=== PATIENT | female | born 1975 | race American Indian/Alaskan Native ===

== ENCOUNTER 2017-03-25 05:57 | Day surgery (SDC) | payer MEDICAID ==
[2017-03-25] MEDS ORDERED: DIPRIVAN 10 MG/ML IV ONE (07:21)
[2017-03-25] MEDS ORDERED: WATER FOR IRRIG STERILE IR ONE (07:31)
--- NOTE | 2017-03-25 07:33 | Anesthesia Day of Surgery ---
Anesthesia Day of Surgery - Day of Surgery Patient Examined: Yes Patient H&P Reviewed: Yes Patient is NPO: Yes
--- NOTE | 2017-03-25 07:34 | Anesthesia Consultation ---
Anesthesia Consult and Med Hx Date of service: 03/25/17 - Airway Anesthetic Teeth Evaluation: Good ROM Head & Neck: Adequate Mental/Hyoid Distance: Adequate Mallampati Class: Class II Intubation Access Assessment: Probably Good - Pulmonary Exam CTA: Yes - Cardiac Exam Cardiac Exam: RRR - Pre-Operative Health Status ASA Pre-Surgery Classification: ASA3 Proposed Anesthetic Plan: MAC - Pulmonary Hx Smoking: Yes (Quit in October) Hx Asthma: No - Cardiovascular System Hx Hypertension: Yes (took meds yesterday AM) - Central Nervous System Hx Psychiatric Problems: Yes (Anxiety, Bipolar) - Endocrine Hx Non-Insulin Dependent Diabetes: No - Hematic Hx Anemia: No Hx Sickle Cell Disease: No - Other Systems Hx Alcohol Use: Yes (occasionally) Hx Substance Use: No Hx Cancer: No Hx Obesity: Yes
--- NOTE | 2017-03-25 07:46 | Discharge Summary ---
Providers - Providers Date of discharge: 03/25/17 Attending physician: NAHUM SCHAFER Primary care physician: BECCA LEONARD Hospitalization Condition: Good Procedures: egd Disposition: DC-01 TO HOME OR SELFCARE Core Measure Documentation - Palliative Care Palliative Care/ Comfort Measures: Not Applicable - Core Measures Any of the following diagnoses?: none Exam - Physical Exam Narrative exam: unchanged from pre-op - Constitutional Vitals: Temp Pulse Resp BP Pulse Ox 97.2 F L 63 16 129/63 92 03/25/17 07:36 03/25/17 07:36 03/25/17 07:36 03/25/17 07:36 03/25/17 07:36 Plan Activity: no restrictions Weight Bearing Status: Full Weight Bearing Diet: regular Follow up with: BECCA LEONARD MD [Primary Care Provider] - 7 Days
--- NOTE | 2017-03-25 07:48 | Operative Report ---
Operative Report Operative Report: OPERATIVE REPORT - EGD DATE 03/24/17 SURGERY: Upper endoscopy. SURGEON: Lane Bautista M.D. PRE OP DX: dyspepsia POST OP DX: hiatal hernia TYPE OF ANESTHESIA: MAC. ESTIMATED BLOOD LOSS: None. COMPLICATIONS: None. SPECIMENS REMOVED: None. FINDINGS: 1. large hiatal hernia. 2. Otherwise, normal esophagus, stomach and first portion of duodenum. INDICATIONS:INDICATION FOR PROCEDURE: Patient is a 41-year-old female with a long history of morbid obesity. She is planned to have a weight loss procedure and is here for preoperative planning EGD. We are looking for any pathology that may explain her symptoms or be a contraindication for upcoming bariatric surgery. PROCEDURE DETAILS: After consent was reviewed, patient was taken back to the operating room where patient was placed in the left lateral decubitus position and a bite block was placed in the mouth. After a time-out was called, MAC anesthesia was initiated. I then passed the endoscope into her oropharynx, into her esophagus, visualized the entire esophagus, which was all within normal limits. I then visualized the stomach and the first portion of the duodenum and there were no abnormalities I could clearly visualize. I then retroflexed the scope in the stomach and visualized the hiatus and I could see a large 3-4cm hiatal hernia. I then desufflated the stomach and removed the endoscope. Patient tolerated procedure well and was transferred to recovery room in good and stable condition.
[2017-03-25] MEDS ORDERED: NACL 0.9% 1000 ML 1,000 ML IV SCH (08:00)
[2017-03-25 08:12] VITALS: BP 107/65
--- NOTE | 2017-03-25 08:21 | Post Anesthesia Evaluation ---
- Post Anesthesia Evaluation Patient Participated: Yes Airway Patent: Yes Stable Respiratory Function: Yes Temp > 96.8F: Yes Pain Manageable: Yes Adequeate Hydration: Yes Anesthesia Complications: No
== END 2017-03-25 05:58 | disposition home or self-care (01) ==
LOC: GIO 05:57
PROVIDERS: ATTEND Surgery
DX: K44.9 Diaphragmatic hernia without obstruction or gangrene (principal); I10 Essential (primary) hypertension; E78.00 Pure hypercholesterolemia, unspecified; K21.9 Gastro-esophageal reflux disease without esophagitis; F31.9 Bipolar disorder, unspecified; F41.9 Anxiety disorder, unspecified; E66.01 Morbid (severe) obesity due to excess calories; Z68.42 Body mass index [BMI] 45.0-49.9, adult; Z90.49 Acquired absence of other specified parts of digestive tract; Z98.890 Other specified postprocedural states; Z79.899 Other long term (current) drug therapy
CPT/HCPCS: 43235; 81025; J2704; J7030

== ENCOUNTER 2017-04-01 07:30 | Inpatient (IN) | payer MEDICAID ==
[~2017-04-01 07:30] MED LIST: MARCAINE-EPI/PF 0.5%-1:200,000 INFILTRATI ONE; XYLOCAINE 1% 20 mL ONE
[2017-04-01] MEDS ORDERED: ANCEF/STERILE WATER 2 GM/20 ML IV NR (10:00)
--- NOTE | 2017-04-01 10:46 | Anesthesia Day of Surgery ---
Anesthesia Day of Surgery - Day of Surgery Patient Examined: Yes Patient H&P Reviewed: Yes Patient is NPO: Yes
--- NOTE | 2017-04-01 10:46 | Anesthesia Consultation ---
Anesthesia Consult and Med Hx Date of service: 04/01/17 - Airway Anesthetic Teeth Evaluation: Good ROM Head & Neck: Adequate Mental/Hyoid Distance: Adequate Mallampati Class: Class II Intubation Access Assessment: Probably Good - Pulmonary Exam CTA: Yes - Cardiac Exam Cardiac Exam: RRR - Pre-Operative Health Status ASA Pre-Surgery Classification: ASA3 Proposed Anesthetic Plan: General - Pulmonary Hx Smoking: Yes (Quit in October) Hx Asthma: No - Cardiovascular System Hx Hypertension: Yes (took meds yesterday AM) - Central Nervous System Hx Psychiatric Problems: Yes (Anxiety, Bipolar) - Endocrine Hx Non-Insulin Dependent Diabetes: No - Hematic Hx Anemia: No Hx Sickle Cell Disease: No - Other Systems Hx Alcohol Use: Yes (occasionally) Hx Substance Use: No Hx Cancer: No Hx Obesity: Yes
[2017-04-01] MEDS ORDERED: TRANSDERM-SCOP TD NR (11:00)
[2017-04-01] MEDS ORDERED: LOVENOX SUB-Q NR (11:00)
[2017-04-01] MEDS ORDERED: VERSED IV PRN (11:00)
[2017-04-01] MEDS ORDERED: FLAGYL 500 MG/100 ML 500 MG/100 ML BAG IV NR (11:00)
[2017-04-01] MEDS ORDERED: NACL 0.9% 1000 ML 1,000 ML IV SCH (11:00)
[2017-04-01] MEDS ORDERED: PEPCID IV SCH (11:02)
[2017-04-01] MEDS ORDERED: MYLICON PO PRN (11:09)
[2017-04-01] MEDS ORDERED: ZOFRAN IV PRN ×2 (11:09→16:20)
[2017-04-01] MEDS ORDERED: MORPHINE IV PRN (11:30)
[2017-04-01] MEDS ORDERED: XANAX PO PRN (11:30)
[2017-04-01] MEDS ORDERED: REGLAN IV PRN (11:30)
[2017-04-01] MEDS ORDERED: XYLOCAINE MPF 2% ONE (11:36)
[2017-04-01] MEDS ORDERED: ZEMURON IV ONE (11:36)
[2017-04-01] MEDS ORDERED: DIPRIVAN 10 MG/ML IV ONE (11:36)
[2017-04-01] MEDS ORDERED: DILAUDID ONE (11:36)
[2017-04-01] MEDS ORDERED: NORCO PO PRN (12:00)
[2017-04-01] MEDS ORDERED: LACTATED RINGERS 1,000 ML IV SCH (12:00)
[2017-04-01] MEDS ORDERED: APRESOLINE IV PRN (12:00)
[2017-04-01] MEDS ORDERED: NACL 0.9% IR ONE ×2 (12:30→13:35)
[2017-04-01] MEDS ORDERED: MARCAINE-EPI 0.5%-1:200,000 INFILTRATI ONE (12:30)
[2017-04-01] MEDS ORDERED: XYLOCAINE 1% 20 mL INFILTRATI ONE (12:30)
[2017-04-01] MEDS ORDERED: PROAIR IH ONE (12:37)
[2017-04-01] MEDS ORDERED: NACL 0.9% 1000 ML 1,000 ML ONE ×2 (12:53→14:48)
[2017-04-01] MEDS ORDERED: DECADRON ONE (14:13)
[2017-04-01] MEDS ORDERED: ZOFRAN ONE (14:13)
[2017-04-01] MEDS ORDERED: ROBINUL ONE (14:13)
[2017-04-01] MEDS ORDERED: NEOSTIGMINE ONE (14:13)
[2017-04-01] MEDS: TORADOL IV SCH ×2 (16:17→22:46)
[2017-04-01] MEDS: DILAUDID IV PRN ×4 (16:20→22:26)
[2017-04-01] MEDS ORDERED: DEMEROL IV PRN (16:20)
--- NOTE | 2017-04-01 16:34 | Operative Report ---
Operative Report Operative Report: Operative Report DATE OF PROCEDURE: 04/01/17 PREOPERATIVE DIAGNOSES: Morbid obesity, hiatal hernia POSTOPERATIVE DIAGNOSES: 1.same as pre-op SURGEON: Lane Bautista M.D. [employer]: Amber Hills MD, Rashel Morgan CSA PROCEDURE: 1. laparoscopic sleeve gastrectomy 2. laparoscopic hiatal hernia repair 3. extensive lysis of adhesions ANESTHESIA: General. ESTIMATED BLOOD LOSS: <5 mL. COMPLICATIONS: None. SPECIMEN: Partial gastrectomy. FINDINGS: 1. hiatal hernia 2. extensive abdominal adhesions from previous open ventral hernia repair with mesh INDICATION FOR PROCEDURE: Patient is a 41-year-old female with a long history of morbid obesity. She has tried multiple efforts at weight loss without snf success. She is here today for sleeve gastrectomy. PROCEDURE IN DETAIL: After consent was reviewed, patient was taken back to the operating room, where patient was placed supine on the bed with both arms out. The patient's legs were doubly strapped to the bed. Patient had a foot board in place. Patient had a body warmer placed by anesthesia. Patient was then prepped and draped in normal sterile surgical fashion. After a time-out was called, I made a stab incision in the left sub costal region and placed a Veress needle through this incision and insufflated the abdomen to 18 mmHg pressure. Using optiview technique a 5mm port was place lateral on the left side. There was noted to be no injury to intra-abdominal structures. There was immediately noticed to be extensive adhesions of omentum, small bowel, and colon to the anterior abdominal wall and mesh from ventral hernia repair. Five working trocars were eventually placed in order to meticulously take down the adhesions with a combination of ligasure device and cold scissor dissection, and be in position to complete the sleeve gastrectomy. It took 45-60 minutes to take down the critical adhesions that were necessary to be taken down in order to perform the sleeve. There were a few loops of bowel in the inferior portion of the mesh that were tightly adhesed, and deemed not mandatory to complete the sleeve gastrectomy that were left in place. I then placed the liver retractor through the subxiphoid port and placed the patient in full reverse Trendelenburg. The GE junction and 2cm of proximal stomach were noted to be above the level of the diaphragmatic hiatus. The right and left crura were skeletonized accentuating a moderate sized hiatal hernia. There was 360 degree dissection around the esophagus away from the hiatal hernia sac, until there was stomach and 2cm of distal esophagus resting comfortably in the abdominal cavity without tension. An anterior and posterior cruraplasty was performed with figure-of-8 stitches using surgidac suture to reapproximate the crura. I then identified the pylorus and then counted off 6cm from the pylorus. I then used a LigaSure cutting device to enter into the lesser sac. At that point and then I took down the short gastrics all the way up to the left joyce. Then I had anesthesia pass down a 40-[place]ian bougie along the lesser curvature of the stomach. I made sure everything else was out of the abdomen except the bougie. I then created my gastric sleeve using a 60-mm laparoscopic stapler. arsalan Felix, followed by blue stapler loads. The sleeve looked good without any twisting or torsion. I then had anesthesia to remove the bougie. Hemostasis was obtained along the staple line. I then used Tiseel along the entirety of the staple line and some on the liver. I then removed liver grasper and took it off the field. I then removed the stomach through the 15-mm port which was placed in the right mid abdomen. I then closed that fascia with a #1 PDS in a [id number] fashion using a Shoaib-Frank. I then desufflated the abdomen and then removed all port sites. I then closed the incisions with 4-0 Monocryl in subcuticular fashion. I then dressed the wounds with Dermabond. Patient tolerated the procedure well and was transferred to recovery room in good and stable condition.
--- NOTE | 2017-04-01 17:46 | Post Anesthesia Evaluation ---
- Post Anesthesia Evaluation Patient Participated: Yes Airway Patent: Yes Stable Respiratory Function: Yes Nausea/Vomiting: No Temp > 96.8F: Yes Pain Manageable: Yes Adequeate Hydration: Yes Anesthesia Complications: No Block Receding Appropriately: Not Applicable Patient on Ventilator: No
[2017-04-01] MEDS ORDERED: NON-FORMULARY (Topiramate [Topamax Tab] 50 MG) PO SCH (22:00)
[2017-04-01] MEDS: ANCEF/NS 1 GM/50 ML 1 GM/50 ML BAG IV SCH (22:47)
[2017-04-01] MEDS: TOPAMAX PO SCH (22:56)
[2017-04-01] MEDS: FLAGYL 500 MG/100 ML 500 MG/100 ML BAG IV SCH ×2 (23:03→23:38)
[2017-04-02 05:07] LABS: Basophils % (Auto) 0.2 % (0.0-1.8); Eosinophils % (Auto) 0.1 % (0.0-4.3); Hematocrit 35.8 % (30.3-42.9); Hemoglobin 11.7 gm/dl (10.1-14.3); Mean Corpuscular HGB Conc 33 % (30-34); Mean Corpuscular Hemoglobin 27 pg (28-32); Mean Corpuscular Volume 82 fl (79-97); Platelet Count 278 K/mm3 (140-440); Red Blood Count 4.39 M/mm3 (3.65-5.03); Red Cell Distribution Width 14.6 % (13.2-15.2); White Blood Count 15.6 K/mm3 (4.5-11.0)
[2017-04-02] MEDS: DILAUDID IV PRN ×2 (05:12→10:21)
[2017-04-02] MEDS: FLAGYL 500 MG/100 ML 500 MG/100 ML BAG IV SCH (05:14)
[2017-04-02] MEDS: ANCEF/NS 1 GM/50 ML 1 GM/50 ML BAG IV SCH (05:17)
[2017-04-02 05:27] LABS: Alanine Aminotransferase 21 units/L (7-56); Albumin 3.5 g/dL (3.9-5); Alkaline Phosphatase 81 units/L (35-129); Anion Gap 19 mmol/L; BUN/Creatinine Ratio 10; Blood Urea Nitrogen 8 mg/dL (7-17); Calcium 8.4 mg/dL (8.4-10.2); Carbon Dioxide 19 mmol/L (22-30); Chloride 107.4 mmol/L (98-107); Glucose 108 mg/dL (65-100); Potassium 4.1 mmol/L (3.6-5.0); Sodium 141 mmol/L (137-145); Total Protein 7.1 g/dL (6.3-8.2)
--- NOTE | 2017-04-02 09:56 | Progress Note ---
Subjective Date of service: 04/02/17 Interval history: Pt is awake and alert. No anesthetic related complaints. Objective - Constitutional Vitals: Vital Signs - 12hr 04/01/17 04/02/17 04/02/17 23:48 04:29 07:30 Temperature 97.9 F 98.4 F 98.6 F Pulse Rate 81 Respiratory 20 16 18 Rate Blood Pressure 130/73 148/75 125/75 O2 Sat by Pulse 99 Oximetry 04/02/17 09:20 Temperature Pulse Rate Respiratory Rate Blood Pressure O2 Sat by Pulse 100 Oximetry - Labs CBC & Chem 7: 04/02/17 04:36 04/02/17 04:36 Labs: Abnormal lab results 04/02/17 04/02/17 Range/Units 04:36 04:36 WBC 15.6 H (4.5-11.0) K/mm3 MCH 27 L (28-32) pg Lymph % (Auto) 13.0 L (13.4-35.0) % Steele % (Auto) 7.4 H (0.0-7.3) % Steele # 1.2 H (0.0-0.8) K/mm3 Seg Neutrophils % 79.3 H (40.0-70.0) % Seg Neutrophils # 12.4 H (1.8-7.7) K/mm3 Chloride 107.4 H (98-107) mmol/L Carbon Dioxide 19 L (22-30) mmol/L Glucose 108 H (65-100) mg/dL Albumin 3.5 L (3.9-5) g/dL
[2017-04-02] MEDS ORDERED: NON-FORMULARY (Bupropion Hcl [Wellbutrin Xl] 300 MG) PO SCH (10:00)
[2017-04-02] MEDS ORDERED: LOVENOX SUB-Q SCH (10:00)
[2017-04-02] MEDS ORDERED: WELLBUTRIN XL PO SCH (10:00)
[2017-04-02] MEDS: TOPAMAX PO SCH (10:20)
[2017-04-02] MEDS ORDERED: CATAPRES PO SCH (11:30)
--- NOTE | 2017-04-02 12:30 | Discharge Summary ---
Providers - Providers Date of Admission: 04/01/17 09:16 Date of discharge: 04/02/17 Attending physician: NAHUM SCHAFER 04/01/17 09:58 Consult to Anesthesiology [CONS] Routine Consulting Provider: RADHA ANESTHESIA JOSE ELIAS TADEO Reason For Exam: SURGERY TODAY Primary care physician: MARTA CARLIN MD Hospitalization Condition: Good Procedures: laparoscopic sleeve gastrectomy with hiatal hernia repair and lysis of adhesions Hospital course: Pt was admitted and observed after an uneventful laparoscopic sleeve gastrectomy , with hiatal hernia repair and extensive lysis of adhesions. She remained afebrile and stable while tolerating clear liquids and ambulating. She was discharged to home after showing no clinical signs of leak or bleeding. Disposition: DC- TO HOME OR SELFCARE Core Measure Documentation - Palliative Care Palliative Care/ Comfort Measures: Not Applicable - Core Measures Any of the following diagnoses?: none Exam - Constitutional Vitals: Temp Pulse Resp BP Pulse Ox 98.6 F 81 18 125/75 100 04/02/17 07:30 04/02/17 07:30 04/02/17 07:30 04/02/17 07:30 04/02/17 09:20 General appearance: Present: no acute distress - EENT Eyes: Present: PERRL - Neck Neck: Present: normal ROM - Respiratory Respiratory effort: normal - Abdominal General gastrointestinal: Present: other (incisions c/d/i, appropriatly tender to deep palpation, no rebound or guarding) Plan Activity: no restrictions Weight Bearing Status: Full Weight Bearing Diet: other (sugar free liquids clear) Wound: open to air Follow up with: PRIMARY CAREMD [Primary Care Provider] - 7 Days
[2017-04-02 12:42] VITALS: BP 120/67
[2017-04-02] MEDS: TORADOL IV SCH (12:54)
== END 2017-04-02 14:45 | disposition home or self-care (01) | DRG 621 ==
LOC: 3A 09:16 → 3B-SURG 16:59
PROVIDERS: ADMIT Surgery; ATTEND Surgery
PROC: 0DB64Z3 Excision of Stomach, Percutaneous Endoscopic Approach, Vertical (ICD-10-PCS; principal; 2017-04-01)
PROC: 0BQT4ZZ Repair Diaphragm, Percutaneous Endoscopic Approach (ICD-10-PCS; 2017-04-01)
PROC: 0DNU4ZZ Release Omentum, Percutaneous Endoscopic Approach (ICD-10-PCS; 2017-04-01)
PROC: 0DNE4ZZ Release Large Intestine, Percutaneous Endoscopic Approach (ICD-10-PCS; 2017-04-01)
PROC: 0DN84ZZ Release Small Intestine, Percutaneous Endoscopic Approach (ICD-10-PCS; 2017-04-01)
PROC: 0DNW4ZZ Release Peritoneum, Percutaneous Endoscopic Approach (ICD-10-PCS; 2017-04-01)
DX: E66.01 Morbid (severe) obesity due to excess calories (principal); K44.9 Diaphragmatic hernia without obstruction or gangrene; K66.0 Peritoneal adhesions (postprocedural) (postinfection); F31.9 Bipolar disorder, unspecified; F41.9 Anxiety disorder, unspecified; K21.9 Gastro-esophageal reflux disease without esophagitis; I10 Essential (primary) hypertension; E78.5 Hyperlipidemia, unspecified; Z68.42 Body mass index [BMI] 45.0-49.9, adult; Z82.49 Family history of ischemic heart disease and other diseases of the circulatory system
CPT/HCPCS: 36415; 80053; 81025; 85025; 88307; 94760; A4217; C9250; J0360; J0690; J1100; J1170; J1650; J1885; J2250; J2405; J2704; J2710; J7030; J7120

== ENCOUNTER 2020-09-29 14:22 | Outpatient (CLI) | payer MEDICAID ==
[2020-09-29 14:48] LABS: Basophils # (Auto) 0.1 K/mm3 (0.0-0.1); Basophils % (Auto) 0.7 % (0.0-1.8); Eosinophils # (Auto) 0.3 K/mm3 (0.0-0.4); Eosinophils % (Auto) 4.4 % (0.0-4.3); Hematocrit 36.4 % (30.3-42.9); Hemoglobin 12.3 gm/dl (10.1-14.3); Lymphocytes # (Auto) 2.7 K/mm3 (1.2-5.4); Lymphocytes % (Auto) 39.4 % (13.4-35.0); Mean Corpuscular HGB Conc 34 % (30-34); Mean Corpuscular Volume 84 fl (79-97); Monocytes # (Auto) 0.4 K/mm3 (0.0-0.8); Monocytes % (Auto) 6.1 % (0.0-7.3); Platelet Count 326 K/mm3 (140-440); Red Blood Count 4.31 M/mm3 (3.65-5.03); Red Cell Distribution Width 14.3 % (13.2-15.2)
== END 2020-09-29 14:23 | disposition home or self-care (01) ==
LOC: LAB 14:22
PROVIDERS: ATTEND Surgery
DX: N61.1 Abscess of the breast and nipple (principal)
CPT/HCPCS: 36415; 85025

== ENCOUNTER 2020-10-01 10:20 | Day surgery (SDC) | payer MEDICAID ==
[~2020-10-01 10:20] MED LIST changes: -MARCAINE-EPI/PF 0.5%-1:200,000 INFILTRATI ONE; +NEOMY 40 MG/POLYMYXIN B 200,000 UNITS/ML (GU) AMPULE IR ONE; +SODIUM CHLORIDE 0.9% IRR 1,500 ML BOTTLE IR ONE; -XYLOCAINE 1% 20 mL ONE; +ceFAZolin/Water 2 GM/20 ML 2 GM/20 ML SYRINGE IV NR
[2020-10-01] MEDS ORDERED: LACTATED RINGERS 1,000 ML ONE (11:37)
[2020-10-01] MEDS ORDERED: VANCOMYCIN 1,250 MG in SODIUM CHLORIDE 0.9% 250ML 250 ML IV SCH (11:45)
[2020-10-01] MEDS ORDERED: VANCOMYCIN/NS 1 GM/250 ML 1 GM/250 ML BAG IV NR (12:00)
[2020-10-01] MEDS ORDERED: fentaNYL 100 MCG/2 ML INJ IV ONE (12:31)
[2020-10-01] MEDS ORDERED: ONDANSETRON 4 MG/2 ML INJ IV PRN (12:31)
[2020-10-01] MEDS ORDERED: HYDROmorphone 1 MG/1 ML INJ IV PRN (12:31)
--- NOTE | 2020-10-01 12:32 | Anesthesia Day of Surgery ---
Anesthesia Day of Surgery - Day of Surgery Patient Examined: Yes Patient H&P Reviewed: Yes Patient is NPO: Yes
[2020-10-01] MEDS ORDERED: dexAMETHasone 4 MG/ML VIAL ONE (12:34)
[2020-10-01] MEDS ORDERED: BUPIVACAINE/PF (0.25%) 2.5 MG/ML 30 ML VIAL INFILTRATI ONE (12:34)
--- NOTE | 2020-10-01 12:34 | Anesthesia Consultation ---
Anesthesia Consult and Med Hx Date of service: 10/01/20 - Airway Anesthetic Teeth Evaluation: Good ROM Head & Neck: Adequate Mental/Hyoid Distance: Adequate Mallampati Class: Class II Intubation Access Assessment: Good - Pre-Operative Health Status ASA Pre-Surgery Classification: ASA3 Proposed Anesthetic Plan: General Nerve Block: ES - Pulmonary Hx Smoking: Yes Hx Asthma: No Hx Sleep Apnea: No (Negative sleep study) - Cardiovascular System Hx Hypertension: Yes (took meds yesterday AM) - Central Nervous System Hx Psychiatric Problems: Yes (Anxiety) - Gastrointestinal Hx Gastroesophageal Reflux Disease: No (S/P gastric sleeve; takes topamax for weight loss) - Endocrine Hx Non-Insulin Dependent Diabetes: No - Hematic Hx Anemia: No Hx Sickle Cell Disease: No - Other Systems Hx Alcohol Use: Yes (Occas) Hx Substance Use: No Hx Cancer: No Hx Obesity: Yes
[2020-10-01] MEDS ORDERED: ACETAMINOPHEN 500 MG TAB ONE (12:43)
[2020-10-01] MEDS ORDERED: CELECOXIB 200 MG CAP ONE (12:43)
[2020-10-01] MEDS ORDERED: LACTATED RINGERS 1,000 ML IV SCH (12:45)
[2020-10-01] MEDS ORDERED: MIDAZOLAM 2 MG/2 ML INJ IV NR (13:00)
[2020-10-01] MEDS ORDERED: NEOMY 40 MG/POLYMYXIN B 200,000 UNITS/ML (GU) AMPULE IR ONE ×3 (13:35→14:43)
[2020-10-01] MEDS ORDERED: dexAMETHasone 20 MG/5 ML VIAL ONE (13:48)
[2020-10-01] MEDS ORDERED: ONDANSETRON 4 MG/2 ML INJ ONE (13:48)
[2020-10-01] MEDS ORDERED: LIDOCAINE MPF (2%) 20 MG/1 ML VIAL 5 ML ONE (13:48)
[2020-10-01] MEDS ORDERED: HYDROmorphone 1 MG/1 ML INJ ONE (13:48)
[2020-10-01] MEDS ORDERED: KETOROLAC 30 MG/1 ML INJ ONE (13:48)
[2020-10-01] MEDS ORDERED: propofoL 200 MG/20 ML VIAL IV ONE (13:49)
[2020-10-01] MEDS ORDERED: ACETAMINOPHEN 500 MG TAB PO ONE (14:10)
[2020-10-01] MEDS ORDERED: SODIUM CHLORIDE 0.9% IRR 1,500 ML BOTTLE IR ONE ×2 (14:28→14:43)
[2020-10-01] MEDS ORDERED: BACITRACIN ZINC OINT 28.4 GM TP ONE ×3 (14:29→14:44)
--- NOTE | 2020-10-01 14:47 | Short Stay Summary ---
Short Stay Documentation Date of service: 10/01/20 - History H&P: obtained from office - Allergies and Medications Current Medications: Allergies clindamycin Allergy (Verified 09/30/20 12:54) Itching Home Medications Medication Instructions Recorded Confirmed Last Taken Type ALPRAZolam [Xanax TAB] 1 mg PO DAILY 03/23/17 10/01/20 10/01/20 08:00 History Topiramate [Topamax TAB] 200 mg PO BID 03/23/17 10/01/20 10/01/20 08:00 History clonazePAM [Klonopin] 1 mg PO BID 09/30/20 10/01/20 10/01/20 08:00 History oxyCODONE /ACETAMINOPHEN [Percocet 1 tab PO Q6HR PRN #15 tablet 10/01/20 Unknown Rx 5/325] Active Medications Hydromorphone HCl (Hydromorphone 1 Mg/1 Ml Inj) 0.25 mg IV Q10MIN PRN PRN Reason: Pain, Moderate (4-6) Stop: 10/01/20 23:59 Hydromorphone HCl (Hydromorphone 1 Mg/1 Ml Inj) 0.5 mg IV Q10MIN PRN PRN Reason: Pain , Severe (7-10) Stop: 10/01/20 23:59 Cefazolin Sodium (Ancef/Sterile Water 2 Gm/20 Ml) 2 gm in 20 mls @ 80 mls/hr IV PREOP NR; Protocol Stop: 10/01/20 23:00 Vancomycin HCl 1,250 mg/ (Sodium Chloride) 275 mls @ 166.667 mls/hr IV PREOP LEELEE Stop: 10/01/20 23:00 Last Admin: 10/01/20 11:55 Dose: 166.667 mls/hr Documented by: Lactated Ringer's (Lactated Ringers) 1,000 mls @ 125 mls/hr IV DIRECT LEELEE Last Admin: 10/01/20 11:55 Dose: 125 mls/hr Documented by: Midazolam HCl (Midazolam 2 Mg/2 Ml Inj) 2 mg IV PREOP NR Stop: 10/01/20 23:59 Last Admin: 10/01/20 12:49 Dose: 2 mg Documented by: Ondansetron HCl (Ondansetron 4 Mg/2 Ml Inj) 4 mg IV ONCE PRN PRN Reason: Nausea And Vomiting - Brief post op/procedure progress note Date of procedure: 10/01/20 Pre-op diagnosis: Left breast abscess Post-op diagnosis: same Procedure: Left breast abscess incision and drainage with drain placement Anesthesia: GETA Findings: Left breast abscess at 3:00 position retroareolar with pus drained and drain placed Surgeon: AP LINDO Estimated blood loss: minimal Pathology: list (cultures) Specimen disposition: to lab Condition: stable - Disposition Condition at discharge: Good Disposition: DC-01 TO HOME OR SELFCARE Short Stay Discharge Plan Activity: no restrictions Diet: regular Wound: keep clean and dry (wear breast binder; apply silvadene cream to breast twice daily; do not manipulate drain) Follow up with: AP LINDO MD [Staff Physician] - 10/07/20 11:45 am Prescriptions: oxyCODONE /ACETAMINOPHEN [Percocet 5/325] 1 tab PO Q6HR PRN #15 tablet PRN Reason: Pain
--- NOTE | 2020-10-01 14:56 | Operative Report ---
Operative Report Operative Report: Operative Report: October 01, 2020 Preoperative diagnosis: Left breast abscess of retroareolar Postoperative diagnosis: Same Procedure: Left breast abscess incision and drainage with drain placement Surgeon: Jemima Schneider MD Home Housekeeper: Lois Larson MD Anesthesia: General Findings: Left breast abscess of retroareolar with pus drained and drain placed; cultures taken and 25-50 cc of pus drained Drains: Quarter inch sarah drain Complications: None EBL: Minimal Disposition: PACU in good condition Indications for operative procedure: This is a 44-year-old lady recently seen in consultation 2 weeks ago for left breast abscess with periductal mastitis of the left retroareolar. Patient with a second to third-degree breast wound from the 10 to 12 o'clock position. Patient reported a greater than a 2-month history of left breast abscess with worsening infection. Recommendations were for antibiotics as well as warm compresses and Silvadene cream to breast wound. Patient seen in the office yesterday with area of pus draining of the retroareolar and recommendations for incision and drainage under general anesthesia and drain placement. Physical exam also noted for left breast erythema and edema from the 2-5:00 positions. Normal WBC (7) from 09/30/2020. Tobacco cessation has been discussed multiple times as well. Patient wished to proceed with a blood procedure. . Procedure in detail: Anesthesia placed left pectoral block. Patient was then taken to the operating room and was laid supine. Gen. anesthesia was administered. The left breast was prepped and draped in the normal sterile operative fashion. Left breast wound was noted from the 10 to 12 o'clock position and pus was noted of the retroareolar around 11 to 12 o'clock position with area of fluctuance at the 3 o'clock position of the nipple areolar complex. Ultrasound was used as well with area of fluctuance present. Using 11 blade knife, a stab incision was made at the 3 o'clock position adjacent to the nipple areolar complex with pus present at area of fluctuance. The breast cavity was irrigated with antibiotic solution. Hemostat was placed through the breast incision that was made and propagated superiorly towards the open breast wound with additional pus drained as well. A least 25 to 50 cc of pus was appropriately drained. The breast cavity was irrigated additionally with further antibiotic solution. 1/4 inch [place] drain was placed and sutured into place. Ultrasound was used with no other areas of abscess pocket present. Bacitracin was then placed on the breast at wound and gauze placed for dressing. The patient tolerated surgery very well and she was awaken from anesthesia without any complication and transported to PACU in good condition.
[2020-10-01] MEDS ORDERED: oxyCODONE /ACETAMINOPHEN 5-325MG TAB PO PRN (15:04)
[2020-10-01] MEDS: HYDROmorphone 1 MG/1 ML INJ IV PRN ×2 (15:14→15:24)
[2020-10-01 15:51] VITALS: BP 114/52
--- NOTE | 2020-10-01 17:20 | Post Anesthesia Evaluation ---
- Post Anesthesia Evaluation Patient Participated: Yes Airway Patent: Yes Stable Respiratory Function: Yes Nausea/Vomiting: No Temp > 96.8F: Yes Pain Manageable: Yes Adequeate Hydration: Yes Anesthesia Complications: No Block Receding Appropriately: Yes Patient on Ventilator: No
== END 2020-10-01 16:20 | disposition home or self-care (01) ==
LOC: OR 10:20
PROVIDERS: ATTEND Surgery
DX: N61.1 Abscess of the breast and nipple (principal); F17.210 Nicotine dependence, cigarettes, uncomplicated; G43.909 Migraine, unspecified, not intractable, without status migrainosus; I10 Essential (primary) hypertension; K21.9 Gastro-esophageal reflux disease without esophagitis; E66.9 Obesity, unspecified; F31.9 Bipolar disorder, unspecified; F41.9 Anxiety disorder, unspecified; Z88.8 Allergy status to other drugs, medicaments and biological substances; Z79.899 Other long term (current) drug therapy; Z90.49 Acquired absence of other specified parts of digestive tract; Z72.89 Other problems related to lifestyle; Z98.890 Other specified postprocedural states; Z68.38 Body mass index [BMI] 38.0-38.9, adult
CPT/HCPCS: 19020; 64450; 76942; 87075; 87116; J0690; J1100; J1170; J1885; J2250; J2405; J2704; J3010; J3370; J7050; J7120